=== PATIENT | male | born 1945 | race Caucasian/White ===

== ENCOUNTER 2019-03-26 06:09 | Inpatient (IN) ==
[2019-03-26] MEDS ORDERED: Ringers Solution, Lactated 1,000 ML IVC SCH (06:30)
[2019-03-26] MEDS ORDERED: *HR* Vasopressin 20 UNIT/ML VIAL ONE (06:45)
[2019-03-26] MEDS ORDERED: Nitroglycerin 0 MG/0 ML INFUS..BTL IVC ONE (06:45)
[2019-03-26] MEDS ORDERED: NiCARdipine 2.5 MG/10 ML Syringe IVPB ONE (06:46)
[2019-03-26] MEDS ORDERED: Lidocaine HCL 4 ML Topical Solution (Laryng-O-Jet Kit Sterile Pak) TP ONE (07:05)
[2019-03-26] MEDS ORDERED: Heparin 1,000 UNITS/500 mL 500 ML ONE ×3 (07:06→10:17)
[2019-03-26] MEDS ORDERED: *HR* Propofol 200 MG/20 ML VIAL IVP ONE (07:08)
[2019-03-26] MEDS ORDERED: *HR* FentaNYL (PF) 100 MCG/2 ML VIAL ONE (07:08)
[2019-03-26] MEDS ORDERED: *HR* Remifentanil 2 MG VIAL IVP ONE (07:08)
[2019-03-26] MEDS ORDERED: Dexamethasone 4 MG/ML VIAL ONE (07:10)
[2019-03-26] MEDS ORDERED: Ondansetron 4 MG/2 ML VIAL ONE (07:10)
[2019-03-26] MEDS ORDERED: Lidocaine -MPF 2% 2 ML VIAL ONE ×2 (07:10→10:35)
[2019-03-26] MEDS ORDERED: *HR* Rocuronium Bromide 50 MG/5 ML VIAL ONE (07:10)
[2019-03-26] MEDS ORDERED: *HR* Heparin 5,000 UNIT/ML VIAL ONE ×2 (07:10→07:12)
[2019-03-26] MEDS ORDERED: Protamine Sulfate 50 MG/5 ML VIAL IVP ONE (07:14)
[2019-03-26] MEDS ORDERED: Lidocaine 1% 20 ML MDV ONE (07:14)
[2019-03-26] MEDS ORDERED: *HR* HYDROmorphone (PF) 1 MG/ML SYRINGE IVP PRN (07:21)
[2019-03-26] MEDS ORDERED: Ondansetron 4 MG/2 ML VIAL IVP PRN ×2 (07:21→16:40)
[2019-03-26] MEDS ORDERED: CeFAZolin Syr 2,000MG/20 ML 2,000 MG/20 ML SYRINGE IVPB ONE (07:31)
[2019-03-26] MEDS ORDERED: ceFAZolin 1,000 MG, Sodium Chloride IRRigation 1,000 ML IR ONE (07:45)
[2019-03-26] MEDS ORDERED: *HR* Midazolam HCl 2 MG/2 ML VIAL ONE (08:01)
[2019-03-26] MEDS ORDERED: *HR* PHENYLEPHRINE 1,000 MCG/10 ML SYRINGE IVP ONE (08:45)
[2019-03-26] MEDS ORDERED: *HR* Phenylephrine 10 MG/ML VIAL ONE (08:50)
[2019-03-26] MEDS ORDERED: *HR* HYDROMORPHONE 2 MG/ML VIAL ONE (10:53)
[2019-03-26] MEDS ORDERED: 0.9 % Sodium Chloride 1,000 ML IVC SCH ×2 (16:00→16:40)
[2019-03-26] MEDS ORDERED: Naloxone 0.4 MG/ML INJ IVP PRN (16:40)
[2019-03-26] MEDS ORDERED: *HR* HYDROcodone/Acet 5/325 mg TABLET PO PRN (16:40)
[2019-03-26] MEDS ORDERED: *HR* Labetalol 20 MG/4 ML SYRINGE IVP PRN (16:40)
[2019-03-26] MEDS ORDERED: Acetaminophen 325 MG TABLET PO PRN (16:40)
[2019-03-26] MEDS: ceFAZolin 2,000 MG in 0.9 % Sodium Chloride 100 ML IVPB SCH (19:54)
[2019-03-26] MEDS: Lisinopril-HCTZ 20-12.5mg TABLET PO SCH (19:56)
[2019-03-26] MEDS: Metoprolol 100 MG TABLET PO SCH (19:56)
[2019-03-26] MEDS ORDERED: Lisinopril-HCTZ 20-12.5mg TABLET PO SCH (21:00)
[2019-03-26] MEDS ORDERED: Metoprolol 100 MG TABLET PO SCH (21:00)
[2019-03-27 03:45] LABS: Basophils % 0.2 %; Hemoglobin 12.3 g/dL (12.9-16.9); Immature Granulocytes % 0.6 % (0-4); Lymphocytes # 0.9 K/mcL (0.6-4.6); Lymphocytes % 10.3 %; Mean Corpuscular HGB Conc 34.2 g/dL (31.6-35.5); Mean Corpuscular Volume 93.8 fL (83.0-100.0); Mean Platelet Volume 9.3 fL (9.4-12.4); Monocytes # 1.1 K/mcL (0.0-1.3); Monocytes % 12.6 %; Neutrophils # 6.8 K/mcL (1.6-8.9); Platelet Count 181 K/mcL (140-400); Red Blood Count 3.84 M/mcL (4.19-5.50); Red Cell Distribution Width 13.2 % (11.5-14.5); Segmented Neutrophils % 76.3 %; White Blood Count 8.9 K/mcL (4.3-11.1)
[2019-03-27 04:03] LABS: BUN/Creatinine Ratio 23 (6-26); Blood Urea Nitrogen 21 mg/dL (8-23); Calcium 8.6 mg/dL (8.6-10.3); Carbon Dioxide 24 mEq/L (23-29); Chloride 106 mEq/L (98-107); Glucose 127 mg/dL (70-105); Osmolality,Calculated 289 (280-300); Potassium 4.2 mEq/L (3.5-5.1); Sodium 137 mEq/L (136-145); eGFR For African Americans > 60 (> 60); eGFR For Non-African Americans > 60 (> 60)
[2019-03-27] MEDS: ceFAZolin 2,000 MG in 0.9 % Sodium Chloride 100 ML IVPB SCH ×2 (05:27→11:02)
[2019-03-27] MEDS ORDERED: Levothyroxine 25 MCG TABLET PO SCH ×2 (06:30→09:00)
[2019-03-27] MEDS ORDERED: Fluticasone Propionate Nasal 50 MCG/SPRAY BOTTLE NS SCH ×2 (09:00)
[2019-03-27] MEDS ORDERED: Aspirin Enteric Coated 81 MG Tablet PO SCH ×2 (09:00)
[2019-03-27] MEDS ORDERED: Loratadine 10 MG TABLET PO SCH ×2 (09:00)
[2019-03-27] MEDS: Lisinopril-HCTZ 20-12.5mg TABLET PO SCH (09:08)
[2019-03-27] MEDS: Metoprolol 100 MG TABLET PO SCH (09:08)
[2019-03-27 11:19] VITALS: BP 114/72
== END 2019-03-27 14:02 | disposition home or self-care (01) | DRG 39 ==
LOC: SAMDAY 06:09 → 2NNU 12:36
PROVIDERS: ADMIT Surgery Vascular Surgery; ATTEND Surgery Vascular Surgery